=== PATIENT | female | born 1995 | race Caucasian/White ===

== ENCOUNTER 2016-10-04 23:13 | Inpatient (IN) | payer OTHER ==
[~2016-10-04] VITALS: Ht 152.4 cm; Wt 52.2 kg
--- NOTE | 2016-10-04 23:30 | NUR ---
INTAKE ASSESSMENT BP:102/65 HR:94, RR:16, SpO2:99% T:98.1 Ht: 5'0" Wt: 115 lbs Pt is in stable condition and able to be admitted on the unit. Explained unit protocols regarding medications and vital signs Q4H. Pt verbalized understanding. Will monitor.
--- NOTE | 2016-10-04 23:50 | NUR ---
ADMISSION NOTE Pt arrived ambulatory from [facility] to the third floor accompanied by a BHT at 2340. Pt is a 21 year old female admitted on 10/04/16 for opiate and cocaine dependency. Pt is full code with NKA. She reports a PMHx of depression, bipolar, asthma, Hep C+ and cholecystectomy (2 months ago). She reports she has a PCP through her rehab but unable to recall name. She was recently at [facility] 1 month ago. From there, she went to [facility] rehab and was there for two weeks until she complained of abdominal cramps/pain and was sent to [facility] in [place], [place] for 7 days. Per pt, she was diagnosed with C-DIFF. Her abdominal pain was being treated with Dilaudid IV. She describes her current use as : 1. Dilaudid IV 0.6 mg Q8min (INFORMATICS EDUCATOR) x7 days Last dose: 0.6 mg IV on 10/04/16 2. Cocaine 1 gram IV daily x 1 year Last dose: 09/04/16 Pt complains of abdominal pain 8/10, dizziness and nausea. Upon assessment, pt is alert and oriented x4, anxious and cooperative. Speech is clear and audible. Heart rate regular. Pt denies chest pain or SOB. PERRLA, breathing is even and unlabored, wheezing heard on left and right upper lobes during auscultation. Pt reports history of asthma. Abdomen is soft and distended. Bowel sounds present in all quadrants, last BM 10/04/16 in AM. (pt reports diarrhea). Skin is warm, dry and intact. MD made aware of admission. Pt oriented to room and unit. Pt is safe with bed locked in lowest position, side rails up x2 and call light within reach. Will continue to monitor. Addendum: 10/05/16 at 0313 by RICK LOTT RN Pt reported history of heroin IV abuse two months ago. She states that she is currently sober from Heroin and started used Cocaine IV one month ago.
[2016-10-05] VITALS: BP 110/82
[2016-10-05] MEDS ORDERED: BUPRENORPHINE HCL 2 MG TAB.SUBL SL PRN
[2016-10-05] MEDS ORDERED: HYDROXYZINE PAMOATE 25 MG CAPSULE PO PRN
[2016-10-05] MEDS ORDERED: diphenhydrAMINE 50 MG CAPSULE PO PRN
[2016-10-05] MEDS ORDERED: IBUPROFEN 400 MG TABLET PO PRN
[2016-10-05] MEDS ORDERED: CLONIDINE HCL 0.1 MG TABLET PO PRN
[2016-10-05] MEDS ORDERED: MAG HYDROX/AL HYDROX/SIMETH 30 ML LIQUID UDC PO PRN
[2016-10-05] MEDS ORDERED: MIRALAX 17 GM POWD.PACK PO PRN
[2016-10-05] MEDS ORDERED: ACETAMINOPHEN 325 MG TABLET PO PRN
[2016-10-05] MEDS ORDERED: ONDANSETRON ODT 4 MG TAB.RAPDIS SL PRN
[2016-10-05] MEDS ORDERED: MAGNESIUM HYDROXIDE 30 ML LIQUID UDC PO PRN
[2016-10-05] MEDS ORDERED: METHOCARBAMOL 750 MG TABLET PO PRN
[2016-10-05] MEDS ORDERED: LOPERAMIDE HCL 2 MG CAPSULE PO PRN ×2
[2016-10-05] MEDS ORDERED: DICYCLOMINE HCL 20 MG TABLET ONE (00:06)
[2016-10-05] MEDS ORDERED: ONDANSETRON ODT 4 MG TAB.RAPDIS ONE (00:06)
[2016-10-05] MEDS ORDERED: NICO1PAT44 TP (00:10)
[2016-10-05] MEDS ORDERED: METR-105 PO (00:10)
[2016-10-05] MEDS ORDERED: TRAZ-147 PO (00:10)
[2016-10-05] MEDS ORDERED: FLUO20CA36 PO (00:10)
[2016-10-05] MEDS ORDERED: ONDA4TAB8 SL (00:10)
[2016-10-05] MEDS ORDERED: ARIP5TAB4 PO (00:10)
--- NOTE | 2016-10-05 00:41 | NUR ---
RN note one-time Toradol Pt c/o back pain=8-01/19. Contact Dr. Macedo and he ordered one-time Toradol 30 mg IM. Primary nurse to administer.
[2016-10-05] MEDS: DICYCLOMINE HCL 20 MG TABLET PO PRN ×2 (00:42→13:09)
--- NOTE | 2016-10-05 00:42 | NUR ---
PRN TORADOL/BENTYL/ZOFRAN Pt complains of abdominal pain/spasms 8/10 and nausea.Pt observed with facial grimacing and restlessness. PRN Toradol, Bentyl and Zofran administered as ordered. Breathing even and unlabored, safety measures in place. Will continue to monitor effectiveness.
[2016-10-05] MEDS ORDERED: KETOROLAC TROMETHAMINE 30 MG INJ IM ONE (00:45)
[2016-10-05 00:49] LABS: BASOPHILS % (AUTO) 0.4 % (0.0-2.0); EOSINOPHILS # (AUTO) 0.2 K/uL (0.0-0.7); EOSINOPHILS % (AUTO) 2.7 % (0.0-7.0); HEMATOCRIT 34.7 % (37-47); HEMOGLOBIN 11.7 G/DL (12.0-16.0); LYMPHOCYTES # (AUTO) 2.1 K/UL (0.8-4.8); LYMPHOCYTES % (AUTO) 32.3 % (20.5-74.5); MEAN CORPUSCULAR HEMOGLOBIN 29.8 UUG (27.0-31.0); MEAN CORPUSCULAR HGB CONC 34 g/dL (32.0-37.0); MEAN CORPUSCULAR VOLUME 88.2 FL (81.0-99.0); MONOCYTES # (AUTO) 0.6 K/UL (0.1-1.30); MONOCYTES % (AUTO) 9.4 % (0-11); NEUTROPHILS # (AUTO) 3.5 K/UL (1.8-8.9); NEUTROPHILS % (AUTO) 55.2 % (31.5-64.5); PLATELET COUNT (AUTO) 117 K/UL (150-450); RED BLOOD CELL COUNT(AUTO) 3.94 MIL/UL (4.2-5.4); WHITE BLOOD COUNT (AUTO) 6.4 K/UL (4.0-11.2)
[2016-10-05 00:58] LABS: ALANINE AMINOTRANSFERASE 898 U/L (14-59); ALKALINE PHOSPHATASE 131 U/L (50-136); AMYLASE 33 U/L (25-115); ASPARTATE AMINOTRANSFERASE 297 U/L (15-37); BILIRUBIN,TOTAL 4.8 mg/dL (0.2-1.0); CARBON DIOXIDE 28 mmol/L (21-32); CHLORIDE 102 mmol/L (98-107); CREATININE 0.7 mg/dL (0.6-1.3); GLUCOSE 106 mg/dL (74-106); LIPASE 86 U/L (73-393); MAGNESIUM 1.6 mg/dL (1.8-2.4); POTASSIUM 3.5 mmol/L (3.5-5.1); UREA NITROGEN, BLOOD 5 mg/dL (7-18)
[2016-10-05 01:07] LABS: THYROID STIMULATING HORMONE 4.567 mIU/mL (0.358-3.740)
[2016-10-05 01:18] LABS: ETHANOL < 3 MG/DL (0-0)
[2016-10-05] MEDS ORDERED: MAGNESIUM OXIDE 400 MG TABLET PO ONE (01:30)
[2016-10-05 01:32] LABS: *AMPHETAMINE, URINE NEGATIVE (NEGATIVE); *BARBITURATE, URINE NEGATIVE (NEGATIVE); *CANNABINOID, URINE NEGATIVE (NEGATIVE); *COCCAINE, URINE NEGATIVE (NEGATIVE); *OPIATE, URINE POSITIVE (NEGATIVE); *PHENCYCLIDINE SCREEN,URINE NEGATIVE (NEGATIVE)
[2016-10-05 01:41] LABS: *URINE HCG, QUAL NEGATIVE (NEGATIVE)
--- NOTE | 2016-10-05 01:42 | NUR ---
PRN TORADOL/BENTYL/ZOFRAN REASSESSMENT PRN Zofran effective. Pt reports decrease in nausea. PRN Toradol and Bentyl ineffective. Pt still complains of abdominal pain 12/19. Breathing even and unlabored. Safety measures in place. Will continue to monitor.
--- NOTE | 2016-10-05 02:14 | NUR ---
NURSING NOTE Pt complains of abdominal cramps/pain and is observed to be restless, anxious, and agitated. COWS:13. Offered PRN Subutex, pt refused d/t pt stated " it makes me throw up." Will continue to monitor.
[2016-10-05] MEDS ORDERED: BUPRENORPHINE HCL 2 MG TAB.SUBL SL ONE (02:15)
[2016-10-05] MEDS ORDERED: MAGNESIUM OXIDE 400 MG TABLET ONE (02:18)
--- NOTE | 2016-10-05 02:40 | NUR ---
NURSING NOTE Pt with complaints of abdominal/back pain. Dr. Macedo was notified and she received an order for one time Toradol 30 mg IM. Pt reported the Toradol was ineffective and was strongly requesting for Dilaudid. Unit policy regarding narcotics was explained to pt by primary and charge nurse. Pt wanted to go to ER. was made aware of pt's verbalization. Per Dr. Macedo, pt can leave AMA. Team Supervisor Krystle was made aware. Risks and benefits of leaving AMA were explained to pt. Pt decided to " wait it out" and stay on unit.
[2016-10-05] MEDS ORDERED: FLUOXETINE HCL 20 MG CAPSULE PO ONE (03:30)
[2016-10-05] MEDS ORDERED: TRAZODONE 100 MG TABLET PO ONE (03:30)
[2016-10-05] MEDS ORDERED: ARIPIPRAZOLE 5 MG TABLET PO ONE (03:30)
[2016-10-05] MEDS ORDERED: PROMETHAZINE HCL 25 MG/1 ML VIAL ONE (03:35)
--- NOTE | 2016-10-05 03:35 | NUR ---
PRN PHENERGAN Pt complains of nausea with no episode of vomiting. PRN Phenergan IM administered as ordered. Breathing is even and unlabored, respirations 16, safety measures in place. Will continue to monitor.
[2016-10-05 04:00] VITALS: BP 105/45
--- NOTE | 2016-10-05 04:35 | NUR ---
PRN PHENERGAN REASSESSMENT PRN Phenergan effective. Pt reports decrease in nausea. Breathing even and unlabored, safety measures in place. Will continue to monitor.
--- NOTE | 2016-10-05 07:13 | NUR ---
END OF SHIFT Pt is a 21 year old female admitted on 10/04/16 for opiate dependency. She is full code with NKA. She received PRN Bentyl, Toradol, Zofran and Phenergan. Pt continues to complain of sharp abdominal pain 8/10 unrelieved by Toradol IM. She was unable to sleep d/t complaints of pain. Intake: 651 mL, Void: x1. BM: 0. Pt on contact isolation for pending C DIFF result. She remains alert and oriented x4, breathing is even and unlabored. Safety measures in place. Endorsed to oncoming shift.
--- NOTE | 2016-10-05 07:35 | NUR ---
START OF SHIFT Rcvd endorsement from night nurse, client is in bed, she sounds asleep, easy to arouse, RR 14, even and non-labored. PRN Bentyl, Toradol, ineffective, Zofran and Phenergan noted effective. She was unable to sleep d/t complaints of pain. Client with COWS 13 @ 0158 she decline Subutex claiming it made her throw up. Client is on contact isolation pending C DIFF result, stool has not been collected. Client is 21 y/o female admitted on 10/04/16 for opioid withdrawal, she has Subutex 4mg PRN for COWS >= 12 available to facilitate detox. Side rails x 2 up, bed in lowest/locked position. call light within reach.
[2016-10-05 08:00] VITALS: BP 112/61
[2016-10-05] MEDS ORDERED: ONDANSETRON 4 MG/2 ML VIAL IM PRN (08:15)
[2016-10-05] MEDS ORDERED: TUBERCULIN,PURIF.PROT.DERIV. 5 TU/0.1 ML TEST ID ONE (09:00)
[2016-10-05] MEDS: MULTIVITAMINS,THERAPEUTIC TABLET PO SCH (09:45)
--- NOTE | 2016-10-05 09:53 | NUR ---
Client refused TB test, Dr. Macedo gave verbal order of cx-ray for medical clearance of active TB., client verbalized understanding.
[2016-10-05 12:55] VITALS: BP 104/52
--- NOTE | 2016-10-05 13:05 | NUR ---
MD NOTIFICATION Dr. Macedo made aware of expiratory wheezes on RLL, no nasal flaring, spO2 @ 92% on RA. Client reports pain 8/10 abdomen.
[2016-10-05] MEDS: METRONIDAZOLE 500 MG TABLET PO SCH ×2 (13:08→21:21)
[2016-10-05] MEDS: NICOTINE 14 MG/24HR PATCH TD SCH (13:08)
--- NOTE | 2016-10-05 13:09 | NUR ---
PRN BENTYL Client reports abdominal spasms, Bentyl 20mg administered. Call light within reach.
[2016-10-05] MEDS ORDERED: IPRATROPIUM BROMIDE 0.5 MG/2.5 ML NEBU NEB PRN (13:30)
[2016-10-05] MEDS ORDERED: ALBUTEROL SULFATE 2.5 MG/ 0.5 ML NEBU NEB PRN (13:30)
[2016-10-05] MEDS: KETOROLAC TROMETHAMINE 30 MG INJ IM PRN (13:33)
--- NOTE | 2016-10-05 13:33 | NUR ---
PRN TORADOL 30MG INJ Client reports sharp abdominal pain 12/19, Toradol 30mg Inj. IM to R deltoid. Risk/benefits discuss, client verbalized understanding. Call light within reach.
--- NOTE | 2016-10-05 14:09 | NUR ---
reassessment PRN BENTYL Client sounds asleep, RR 16, even, non-labored, Bentyl 20mg effective. Call light within reach.
--- NOTE | 2016-10-05 14:33 | NUR ---
Reassessment PRN TORADOL 30MG INJ Client sound asleep, RR 16, even, non-labored. Call light within reach. Will continue to monitor.
--- NOTE | 2016-10-05 15:15 | NUR ---
IV line insertion 22G IV inserted to R AC x1 attempt, rapid blood return noted, pt tolerated well.
[2016-10-05] MEDS ORDERED: IV D5%-1/2NS-KCL 10 MEQ 1,000 ML IV SCH (15:30)
[2016-10-05] MEDS: IV D5%-1/2NS-KCL 10 MEQ 1,000 ML IV PRN (16:38)
[2016-10-05 16:55] VITALS: BP 103/59
--- NOTE | 2016-10-05 16:55 | NUR ---
Client reports abdominal pain 12/19, she request another dose of Toradol inj, educate client on frequency of PRN medication, and she stated "Ok, then I just wait until is time for you to give me another shot of Toradol." Charge nurse made aware, Vitals are as follow T97.9, P 87, RR 16, BP 103/59, spO2 @ 99% on RA. Will continue to monitor.
[2016-10-05] MEDS ORDERED: PROMETHAZINE HCL 25 MG/1 ML VIAL IM PRN ×2 (18:30)
--- NOTE | 2016-10-05 19:22 | NUR ---
END OF SHIFT Endorsed to incoming nurse, client is in bed, she presents with depressed mood, flat affect. Jaundice at face noted, she has a dry cough, but refuses PRN breathing tx. Dr. Macedo notified of no urine output, bladder nondistended, no edema, PO intake 300mL, plus 240mL IV D5 1/2NS 10% KCL @ 120mL/hr. Peripheral line R AC 22G intact/patent. PRN Bentyl, Toradol noted effective. Client with COWS 3 @ 1655 Client is on contact isolation pending C DIFF result, stool has been collected. Client is 21 y/o female admitted on 10/04/16 for opioid withdrawal, she has Subutex 4mg PRN for COWS >= 12 available to facilitate detox. Side rails x 2 up, bed in lowest/locked position. call light within reach.
[2016-10-05 20:00] VITALS: BP 108/72
--- NOTE | 2016-10-05 20:00 | NUR ---
Start of Shift Pt is a 21 year old female admitted for Opiate dependence. PMH: Hep C, depression, bipolar, asthma, cholecystectomy (2 months ago) and Heroin abuse 2 months ago. NKA, regular diet, denies seizure history. Pt is on contact isolation pending C-diff result. IV 22g in right AC, patent/intact, flushing well, D5 1/2NS 10% KCL @ 120mL/hr. During time of assessment, pt is alert/oriented x4, presents with depressed mood/flat affect, skin flushed, dry cough noted, respirations even/unlabored, denies SOB/chest pain. Safety measures in place, call light within reach, side rails up x2, bed locked and in low position. Will continue to monitor.
[2016-10-05] MEDS: TRAZODONE 100 MG TABLET PO SCH (20:41)
[2016-10-05] MEDS: LACTOBACILLUS RHAMNOSUS GG 1 EACH CAPSULE PO SCH (20:41)
[2016-10-06] VITALS: BP 116/73
--- NOTE | 2016-10-06 | NUR ---
Vital Signs BP 116/73, pulse 82, respirations 186 Spo2 96%, temp 98.3, no pain 0/10 COWS deferred to pt sleeping - to assess while pt is awake as ordered. Safety measures in place. Will continue to monitor. Addendum: 10/06/16 at 0223 by BERT PAZ RN CORRECTION: BP 116/73, pulse 82, respirations 18 Spo2 96%, temp 98.3, no pain 0/10
[2016-10-06] MEDS: IV D5%-1/2NS-KCL 10 MEQ 1,000 ML IV PRN ×3 (01:38→21:41)
--- NOTE | 2016-10-06 01:38 | NUR ---
New bag of D5 1/2NS 10% KCL @ 120mL/hr. Safety measures in place. Will continue to monitor.
[2016-10-06 04:00] VITALS: BP 113/77
--- NOTE | 2016-10-06 04:00 | NUR ---
Vital Signs BP 113/77, pulse 83, respirations 16 Spo2 96%, temp 98.3, no pain 0/10 COWS deferred to pt sleeping - to assess while pt is awake as ordered. Safety measures in place. Will continue to monitor
[2016-10-06] MEDS: METRONIDAZOLE 500 MG TABLET PO SCH (06:58)
--- NOTE | 2016-10-06 07:00 | NUR ---
End of Shift Pt is a 21 year old female admitted for Opiate dependence. PMH: Hep C, depression, bipolar, asthma, cholecystectomy (2 months ago) and Heroin abuse 2 months ago. NKA, regular diet, denies seizure history. Pt is on contact isolation pending C-diff result. IV 22g in right AC, patent/intact, flushing well, D5 1/2NS 10% KCL @ 120mL/hr, hung at 0138. During shift, presented with fatigue, depressed mood/flat affect, skin flushed, dry cough noted. Scheduled medications administered. COWS 3. Pt slept for 7 hours, intake of 500 ml PO and no voids reported during shift. Safety measures in place, call light within reach, side rails up x2, bed locked and in low position. Endorsed to day shift nurse.
--- NOTE | 2016-10-06 07:38 | NUR ---
START OF SHIFT NOTE Received pt this AM aox4. Patient states "I feel crappy. My stomach hurts and I slept horrible." No taper initiated. No PRNs given during last shift. Patient slept 7 hours. Patient has 22 g right AC with D5 1/2 running @ 120ml/hr. Site patent, intact, and flushing well. Last COWS 3 per night nurse. Encouraged pt to attend groups and activities this shift. Encouraged pt to increase fluid intake to facilitate detox and increase hydration. Will provide safe and supportive environment. Will continue to monitor.
[2016-10-06 07:53] LABS: BASOPHILS % (AUTO) 0.4 % (0.0-2.0); BILIRUBIN,DIRECT 3.1 mg/dL (0.0-0.2); BILIRUBIN,TOTAL 3.7 mg/dL (0.2-1.0); CREATININE 1.1 mg/dL (0.6-1.3); EOSINOPHILS # (AUTO) 0.2 K/uL (0.0-0.7); EOSINOPHILS % (AUTO) 2.9 % (0.0-7.0); HEMATOCRIT 31.7 % (37-47); HEMOGLOBIN 10.5 G/DL (12.0-16.0); LYMPHOCYTES # (AUTO) 2.5 K/UL (0.8-4.8); MAGNESIUM 1.8 mg/dL (1.8-2.4); MEAN CORPUSCULAR HGB CONC 33 g/dL (32.0-37.0); MEAN CORPUSCULAR VOLUME 87.7 FL (81.0-99.0); MONOCYTES # (AUTO) 0.9 K/UL (0.1-1.30); MONOCYTES % (AUTO) 11.3 % (0-11); NEUTROPHILS # (AUTO) 4.1 K/UL (1.8-8.9); NEUTROPHILS % (AUTO) 53.4 % (31.5-64.5); PHOSPHOROUS 3.1 mg/dL (2.5-4.9); RED BLOOD CELL COUNT(AUTO) 3.61 MIL/UL (4.2-5.4); TOTAL PROTEIN, SERUM 5.4 g/dL (6.4-8.2); WHITE BLOOD COUNT (AUTO) 7.7 K/UL (4.0-11.2)
[2016-10-06 08:05] LABS: PLATELET COUNT (AUTO) 179 K/UL (150-450)
[2016-10-06 08:18] VITALS: BP 116/71
[2016-10-06] MEDS: MULTIVITAMINS,THERAPEUTIC TABLET PO SCH (08:20)
[2016-10-06] MEDS: VENLAFAXINE XR 75 MG CAP.SR.24H PO SCH (08:20)
[2016-10-06] MEDS: LACTOBACILLUS RHAMNOSUS GG 1 EACH CAPSULE PO SCH ×2 (08:21→21:03)
[2016-10-06] MEDS: NICOTINE 14 MG/24HR PATCH TD SCH (08:21)
[2016-10-06] MEDS: KETOROLAC TROMETHAMINE 30 MG INJ IM PRN ×2 (08:25→23:20)
--- NOTE | 2016-10-06 08:43 | NUR ---
PRN MEDS PRN Toradol given for stomach pain 11/18. patient reports it feels like a sharp pain all over. Will reassess.
--- NOTE | 2016-10-06 09:20 | NUR ---
PRN REASSESSMENT Patient states the medication helped a tiny bit. She states her pain is now a 6/10. Will continue to monitor
[2016-10-06] MEDS ORDERED: POTASSIUM CHLORIDE 20 MEQ TAB.PRT.SR PO ONE (11:00)
[2016-10-06 12:00] VITALS: BP 123/66
[2016-10-06] MEDS: VANCOMYCIN FOR PO/GT/NG USE PO SCH ×3 (12:22→23:04)
[2016-10-06 16:00] VITALS: BP 118/69
[2016-10-06] MEDS ORDERED: DICY20TA28 PO (17:41)
[2016-10-06] MEDS ORDERED: VENL75CA56 PO (17:41)
[2016-10-06] MEDS ORDERED: Vancomycin Hcl PO (17:41)
[2016-10-06] MEDS ORDERED: METH-33 PO (17:41)
[2016-10-06] MEDS ORDERED: LACT1CAP57 PO (17:41)
[2016-10-06] MEDS ORDERED: HYDR-3895 PO (17:41)
--- NOTE | 2016-10-06 18:34 | NUR ---
END OF SHIFT NOTE Patient scheduled for discharge tomorrow. UDS collected and sent to lab. Last COWS 2. Patient is on contact precautions for positive C. Diff. Patient educated on isolation precautions and pt verbalized understanding. Patient c/o stomach pains during shift. PRN Toradol was given with some effectiveness. Patient has a right AC 22 g IV with D5 1/2 infusing at 120 ml/hr. Site is patent and intact. No redness or swelling noted. Patient's vitals were stable throughout shift. Patient did not attend and groups or activities and stayed in room most of shift. All needs have been met. All safety measures in place. Patient currently resting in bed with bed locked and in lowest position and call miguel within reach with IV pole out of walkway. WIll pass shift report to oncoming nurse.
[2016-10-06 19:24] LABS: *AMPHETAMINE, URINE NEGATIVE (NEGATIVE); *BARBITURATE, URINE NEGATIVE (NEGATIVE); *CANNABINOID, URINE NEGATIVE (NEGATIVE); *COCCAINE, URINE NEGATIVE (NEGATIVE); *OPIATE, URINE NEGATIVE (NEGATIVE); *PHENCYCLIDINE SCREEN,URINE NEGATIVE (NEGATIVE)
[2016-10-06 20:00] VITALS: BP 110/68
--- NOTE | 2016-10-06 20:00 | NUR ---
Start of Shift Pt is a 21 year old female admitted for Opiate dependence, no taper initiated. PMH: Hep C, depression, bipolar, asthma, cholecystectomy (2 months ago) and Heroin abuse 2 months ago. NKA, regular diet, denies seizure history. Pt is on contact isolation due to positive C-diff. Patient has a right AC 22 g IV with D5 1/2 infusing at 120 ml/hr. During time of assessment, pt is alert/oriented, reports abdominal cramping, respirations even/unlabored, denies SOB/chest pain. Pt is scheduled for discharge tomorrow. Safety measures in place, call light within reach, side rails up x2, bed locked and in low position. Will continue to monitor.
[2016-10-06] MEDS: TRAZODONE 100 MG TABLET PO SCH (21:02)
--- NOTE | 2016-10-06 21:41 | NUR ---
New Bag started, D5 1/2 infusing at 120 ml/hr. IV Site intact/patient, flushed well, no swelling/redness noted.
[2016-10-06 22:02] LABS: BILIRUBIN,DIRECT 2.7 mg/dL (0.0-0.2); BILIRUBIN,TOTAL 3.5 mg/dL (0.2-1.0); CREATININE 0.9 mg/dL (0.6-1.3); MAGNESIUM 1.8 mg/dL (1.8-2.4); POTASSIUM 3.5 mmol/L (3.5-5.1); TOTAL PROTEIN, SERUM 5.8 g/dL (6.4-8.2)
[2016-10-06 22:19] LABS: THYROID STIMULATING HORMONE 6.745 mIU/mL (0.358-3.740)
--- NOTE | 2016-10-06 23:19 | NUR ---
PRN Administration Pt reported severe abdominal pain, rated 9/10. Pt also reported feeling anxious. Toradol inj 30mg/1ml and Vistaril 50mg PRN administered. Safety measures in place. Will continue to monitor.
[2016-10-07] VITALS: BP 125/85
--- NOTE | 2016-10-07 | NUR ---
Vital Sign BP 125/85, pulse 98, respirations 16, Spo2 97%, temp 97.7, no pain reported 0/10 COWS deferred d/t pt sleeping to ass while pt is awake as ordered. Safety measures in place, will continue to monitor.
--- NOTE | 2016-10-07 00:19 | NUR ---
PRN Reassessment Upon reassessment, pt is sleeping, no s/s of distress, respirations even/unlabored. Safety measures in place. Will continue to monitor.
[2016-10-07 04:00] VITALS: BP 114/69
--- NOTE | 2016-10-07 04:00 | NUR ---
Vital Sign BP 114/69, pulse 67, respirations 14, Spo2 96%, temp 97.8, no pain reported 0/10 COWS deferred d/t pt sleeping to asses while pt is awake as ordered. Safety measures in place, will continue to monitor.
[2016-10-07] MEDS: VANCOMYCIN FOR PO/GT/NG USE PO SCH (06:19)
--- NOTE | 2016-10-07 07:00 | NUR ---
End of Shift Pt is a 21 year old female admitted for Opiate dependence, no taper initiated. PMH: Hep C, depression, bipolar, asthma, cholecystectomy (2 months ago) and Heroin abuse 2 months ago. NKA, regular diet, denies seizure history. Pt is on contact isolation due to positive C-diff. Patient has a right AC 22 g IV with D5 1/2 infusing at 120 ml/hr. During, pt reported severe abdominal cramping 9/10 and anxiety Toradol injection 30mg/1ml and Vistaril 50mg PRN administered. Upon reassessment, pt was sleeping. Pt is scheduled for discharge today. No s/s of acute withdrawal noted, COWS 1. Pt slept for 8 hours, intake of 1000 ml Po and voids x1. Safety measures in place, call light within reach, side rails up x2, bed locked and in low position. Endorsed to day shift nurse.
--- NOTE | 2016-10-07 07:53 | NUR ---
START OF SHIFT NOTE Received pt this AM aox4. Patient states she is ready to be discharged. PRN Vistaril and Toradol given per night nurse with effectiveness. Last COWS 1 per night nurse. Vital signs stable. Will discharge patient. Will provide safe and supportive environment. Will continue to monitor.
[2016-10-07 08:00] VITALS: BP 118/70
[2016-10-07] MEDS: MULTIVITAMINS,THERAPEUTIC TABLET PO SCH (08:13)
[2016-10-07] MEDS: VENLAFAXINE XR 75 MG CAP.SR.24H PO SCH (08:13)
[2016-10-07] MEDS: LACTOBACILLUS RHAMNOSUS GG 1 EACH CAPSULE PO SCH (08:13)
[2016-10-07] MEDS: NICOTINE 14 MG/24HR PATCH TD SCH (08:14)
--- NOTE | 2016-10-07 10:14 | NUR ---
DISCHARGE NOTE Patient is in stable condition. Vitals WNL, pt is alert and oriented x4. Skin intact. Patient denies any suicidal or homicidal ideations. All discharge paperwork completed, dated, and signed. Patient educated about discharge instructions and when to notify MD, patient verbalized understanding. Patients last COWS 0. Patient was discharged from [facility] and taken to lobby by CONSERVATION ENFORCEMENT OFFICER on 10/07/16 at 1000 am and picked up by [employer]. Patient left building with all belongings and rx. Patient did not bring any medications with her to unit. MD has been notified of patient's discharge.
[2016-10-09 07:38] LABS: HEPATITIS B SURFACE AG Negative (Negative)
[2016-10-09 10:09] LABS: *HCV QUANT 920 IU/mL (.)
== END 2016-10-07 10:00 | disposition other institution (70) | DRG 895 ==
LOC: SRC 23:13
PROVIDERS: ADMIT Internal Medicine; ATTEND Internal Medicine
PROC: HZ2ZZZZ Detoxification Services for Substance Abuse Treatment (ICD-10-PCS; principal; 2016-10-04)
PROC: HZ51ZZZ Individual Psychotherapy for Substance Abuse Treatment, Behavioral (ICD-10-PCS; 2016-10-06)
DX: F11.23 Opioid dependence with withdrawal (principal); A04.7 Enterocolitis due to Clostridium difficile; F31.30 Bipolar disorder, current episode depressed, mild or moderate severity, unspecified; J45.20 Mild intermittent asthma, uncomplicated; Z59.1 Inadequate housing; Z90.49 Acquired absence of other specified parts of digestive tract; E87.6 Hypokalemia; G47.00 Insomnia, unspecified; D69.6 Thrombocytopenia, unspecified; D63.8 Anemia in other chronic diseases classified elsewhere; B19.20 Unspecified viral hepatitis C without hepatic coma; F14.21 Cocaine dependence, in remission; Z79.899 Other long term (current) drug therapy; F17.210 Nicotine dependence, cigarettes, uncomplicated; E83.42 Hypomagnesemia; E07.81 Sick-euthyroid syndrome
CPT/HCPCS: 36415; 71010; 76700; 80307; 80361; 83690; 83735; 84100; 84443; 84703; 85025; 85610; 86580; 86592; 86705; 86803; 87340; 87521; 87806; A4663; G6040-TC; J1885; J2550; J3370; J3490; Q0162